=== PATIENT | male | born 1985 | race Caucasian/White ===

== ENCOUNTER → 2016-09-28 | Day surgery (SDC) | payer OTHER ==
[~2016-09-28] VITALS: Ht 190.5 cm; Wt 108.9 kg
[~2016-09-28] MED LIST: AMOXICILLIN500 MG PO; ANAPROX DS550 MG PO; ATARAX,VISTARIL50 MG PO; BACTRIM DS 8001 TA1 PO; BIAXIN500 MG PO; CARBIDOPA/LEVOD1 TA1 PO; CEPHALEXIN500 M1 PO; CLARITIN10 MG PO; COLACE100 MG PO; COMPAZINE10 MG PO; EES400 MG PO; HYDROCODONE BIT1 T11 PO; KEFLEX500 MG PO; MOTRIN800 MG PO; PEN-VEE K500 MG PO; PLACEBO #001 EACH PO; PROVENTIL0.09 MG/AC IH; TRAMADOL HCL50 MG PO; VIBRAMYCIN100 MG PO; VICODIN 5/500 505 MG PO; VICODIN ES 7501 TAB PO; ZANTAC150 MG PO; ZOFRAN 4 MG ED2 TAB PO; ZOFRAN ODT4 MG SL
--- NOTE | ~2016-09-28 | PROC NOTE ---
[place], [place] PROCEDURE NOTE NAME: LOLLY GARZA UNIT #: [id number] ROOM: DOCTOR: HOMERO WALDRON MD BIRTHDATE: [birth year] DOS: 09/28/2016 PREOPERATIVE DIAGNOSIS: Epigastric pain. POSTOPERATIVE DIAGNOSIS: Epigastric pain. PROCEDURE: Esophagogastroduodenoscopy with biopsy x2. ENDOSCOPIST: Dr. Homero Waldron. BLADDER TIER: MS3. ANESTHESIA: MAC. INDICATIONS: This is a 31-year-old gentleman with a history of persistent epigastric pain despite being on Protonix b.i.d. who is here for the above-mentioned procedure. The procedure and its complications were explained to the patient in detail. Complications that were discussed included but were not limited to bleeding, missed lesions and gastric perforation. He agreed to proceed. DESCRIPTION OF PROCEDURE: After identifying the patient, the patient was brought to the endoscopy suite and laid in the left lateral position. After time-out procedure was called, IV sedation was administered and a bite block was placed. An adult gastroscope was introduced into the mouth and advanced sequentially into the pharynx, esophagus, stomach and the first 2 parts of the duodenum. There was found to be some gastritis mainly in the body of the stomach and also some duodenitis, but no active bleeding. The rest of the stomach mucosa looked within normal limits. At this point, 2 biopsies were taken from the region of the stomach body and sent for histopathological diagnosis. Hemostasis was confirmed after the scope was withdrawn, and these findings were confirmed. There was no obvious esophageal lesion that could be identified. The patient tolerated the procedure well and was taken to the recovery room in stable fashion. There were no complications. Dr. Homero Waldron, the attending endoscopist, was present throughout the operating case. Homero Waldron MD CM:PROCNOTE:PROCEDURE NOTE [id number] HOMERO WALDRON MD
== END | disposition home or self-care (01) ==
LOC: SDC 09-24 11:00
DX: K29.50 Unspecified chronic gastritis without bleeding (principal); K29.80 Duodenitis without bleeding; K21.9 Gastro-esophageal reflux disease without esophagitis; Z83.3 Family history of diabetes mellitus; Z80.9 Family history of malignant neoplasm, unspecified; Z82.49 Family history of ischemic heart disease and other diseases of the circulatory system; Z87.891 Personal history of nicotine dependence

== ENCOUNTER 2016-11-07 23:35 | Emergency (ER) | payer OTHER ==
[~2016-11-07] VITALS: Ht 187.9 cm; Wt 99.8 kg
[2016-11-08 00:08] LABS: BASO % 0.4 % (0.0-1.0); EOS % 0.3 % (1.0-4.0); HEMATOCRIT 41.9 % (42.0-52.0); HEMOGLOBIN 13.4 g/dl (14.0-18.0); IG # 0.2 10*3/uL (0.0-0.1); LYMPH # 4.6 10*3/uL (1.3-4.4); LYMPH % 42.1 % (27.0-41.0); MEAN CELL VOLUME 92.3 fl (80.0-94.0); MEAN CORPUSCULAR HGB 29.5 pg (27.0-31.0); MEAN PLATELET VOLUME 9.8 fl (9.6-12.3); MONO # 0.9 10*3/uL (0.1-1.0); MONO % 8.4 % (3.0-9.0); NEUT # 5.1 10*3/uL (2.3-7.9); NEUT % 47.4 % (47.0-73.0); PLATELET COUNT AUTOMATED 272 10*3/uL (130-400); RED BLOOD COUNT 4.54 10*6/uL (4.50-5.90); RED CELL DISTRI WIDTH 12.7 % (0-14.5); WHITE BLOOD COUNT 10.8 10*3/uL (4.8-10.8)
[2016-11-08 00:09] LABS: BUN 12 mg/dl (7-24); CARBON DIOXIDE 28 mmol/L (21-32); CHLORIDE 105 mmol/L (98-107); EST GLOM FILT AFRICAN AMERICAN > 60 ml/min; GLUCOSE 199 mg/dL (65-99); POTASSIUM 3.4 mmol/L (3.5-5.1); SODIUM 143 mmol/L (136-145)
[2016-11-08 00:12] LABS: TROPONIN I < 0.015 ng/ml (<0.045)
[2016-11-08 01:07] VITALS: BP 128/92
== END 2016-11-08 01:39 | disposition home or self-care (01) ==
LOC: ED 23:35
PROVIDERS: Student in an Organized Health Care Education/Training Program
DX: T50.901A Poisoning by unspecified drugs, medicaments and biological substances, accidental (unintentional), initial encounter (principal); F11.10 Opioid abuse, uncomplicated; F14.10 Cocaine abuse, uncomplicated; Y92.9 Unspecified place or not applicable

== ENCOUNTER 2016-12-22 13:33 | Emergency (ER) | payer OTHER ==
[~2016-12-22] VITALS: Wt 95.3 kg
[2016-12-22 13:42] VITALS: BP 170/100
[2016-12-22] MEDS ORDERED: NALTREXONE50 MG PO (13:42)
[2016-12-22] MEDS ORDERED: REQUIP0.5 MG PO (13:58)
== END 2016-12-22 14:20 | disposition home or self-care (01) ==
LOC: ED 13:33
DX: R42 Dizziness and giddiness (principal); T50.7X1A Poisoning by analeptics and opioid receptor antagonists, accidental (unintentional), initial encounter; F11.23 Opioid dependence with withdrawal; F12.10 Cannabis abuse, uncomplicated; Z90.49 Acquired absence of other specified parts of digestive tract; Z79.899 Other long term (current) drug therapy; Y92.9 Unspecified place or not applicable

== ENCOUNTER 2018-01-19 23:28 | Emergency (ER) | payer OTHER ==
[~2018-01-19] VITALS: Ht 187.9 cm; Wt 90.7 kg
[~2018-01-19 23:28] MED LIST changes: +NALTREXONE50 MG PO; +REQUIP0.5 MG PO
[2018-01-19 23:31] VITALS: BP 133/81
== END 2018-01-20 00:30 | disposition home or self-care (01) ==
LOC: ED 23:28
DX: H61.21 Impacted cerumen, right ear (principal); F17.200 Nicotine dependence, unspecified, uncomplicated; Z79.899 Other long term (current) drug therapy

== ENCOUNTER 2018-06-09 10:06 | Inpatient (IN) | payer OTHER ==
[~2018-06-09] VITALS: Ht 188 cm; Wt 117.2 kg
--- NOTE | ~2018-06-09 | EKG ---
[place], [place] ELECTROCARDIOGRAM REPORT NAME: LOLLY GARZA UNIT #: [id number] ROOM: 519 DOCTOR: CAROL DRAFT REPORT BIRTHDATE: [birth year] [facility] Test Date: 2018-06-09 Test Time: 13:01:11 Pat Name: LOLLY GARZA Department: Room: [facility] 1 Gender: M [employer]: : 1985 Requested By: CATHIE WASHINGTON Order Number: [id number] Reading MD: Maggi Doty MD Measurements Intervals [place] Rate: 58 P: 20 [place]: 141 QRS: 79 QRSD: 88 T: 68 QT: 407 QTc: 400 Interpretive Statements Sinus rhythm Electronically Signed On 06-10-2018 11:10:47 PST by Maggi Doty MD CM:EKGRPT:ELECTROCARDIOGRAM REPORT 1301 [id number] SHWETA SANTANA DRAFT REPORT CATHIE WASHINGTON DPM
[2018-06-09 10:11] VITALS: BP 123/88
[2018-06-09 10:35] LABS: BASO # 0.1 10*3/uL (0.0-0.1); BASO % 0.5 % (0.0-1.0); EOS # 0.2 10*3/uL (0.0-0.4); HEMATOCRIT 43.5 % (42.0-52.0); LYMPH # 2.7 10*3/uL (1.3-4.4); LYMPH % 27.5 % (27.0-41.0); MEAN CELL VOLUME 94.4 fl (80.0-94.0); MEAN CORPUSCULAR HGB 30.4 pg (27.0-31.0); MEAN CORPUSCULAR HGB CONC 32.2 g/dl (33.0-37.0); MEAN PLATELET VOLUME 9.7 fl (9.6-12.3); MONO # 0.9 10*3/uL (0.1-1.0); MONO % 8.9 % (3.0-9.0); NEUT % 60.7 % (47.0-73.0); PLATELET COUNT AUTOMATED 258 10*3/uL (130-400); RED BLOOD COUNT 4.61 10*6/uL (4.50-5.90); RED CELL DISTRI WIDTH 12.4 % (0-14.5); WHITE BLOOD COUNT 9.9 10*3/uL (4.8-10.8)
[2018-06-09 10:41] LABS: URINE AMPHETAMINES < 1000 (1000ng/ml); URINE BARBITURATES < 200 (200ng/ml); URINE BENZODIAZEPINES < 200 (200ng/ml); URINE CANNABINOIDS (THC) > 50 (50ng/ml); URINE COCAINE > 300 (300ng/ml); URINE METHADONE < 300 (300ng/ml); URINE OPIATES > 300 (300ng/ml)
[2018-06-09 10:44] LABS: URINE PHENCYCLIDINE < 25 (25ng/ml)
[2018-06-09 10:50] LABS: ALBUMIN 3.8 gm/dl (3.1-4.5); ALKALINE PHOSPHATASE 88 U/L (45-117); BUN 14 mg/dl (7-24); CHLORIDE 105 mmol/L (98-107); CREATININE 1.19 mg/dL (0.70-1.30); SGOT/AST 22 IU/L (3-35); SGPT/ALT 49 U/L (12-78); SODIUM 140 mmol/L (136-145); TOTAL PROTEIN 7.6 gm/dL (6.4-8.2)
[2018-06-09 10:58] LABS: ETHYL ALCOHOL < 3.0 mg/dl (<3)
[2018-06-09 11:58] VITALS: BP 132/81
[2018-06-09 13:11] LABS: INTERNATIONAL NORM RATIO 0.9 (2.0-3.5)
[2018-06-09 16:00] VITALS: BP 108/55
[2018-06-09 20:00] VITALS: BP 143/86
[2018-06-09 20:42] LABS: BILIRUBIN NEGATIVE (NEGATIVE); BLOOD NEGATIVE (NEGATIVE); CLARITY CLEAR (CLEAR); COLOR YELLOW (YELLOW); GLUCOSE NEGATIVE (NEGATIVE); KETONE NEGATIVE (NEGATIVE); LEUKO ESTERASE NEGATIVE (NEGATIVE); NITRITE NEGATIVE (NEGATIVE); SPECIFIC GRAVITY >= 1.030 (1.005-1.030)
[2018-06-09 20:51] LABS: BACTERIA 1+; MUCOUS 2+
[2018-06-09 20:52] LABS: WBC 0-2 wbc/hpf (0-5)
[2018-06-10] VITALS: BP 137/75
[2018-06-10 08:00] VITALS: BP 128/72
== END 2018-06-10 10:00 | disposition left against medical advice (07) | DRG 894 ==
LOC: ED 10:06 → EDHOLD 11:25 → 5E 11:25
PROVIDERS: Emergency Medicine; Podiatrist Primary Podiatric Medicine
DX: F11.23 Opioid dependence with withdrawal (principal); F14.90 Cocaine use, unspecified, uncomplicated; F12.90 Cannabis use, unspecified, uncomplicated; Z72.0 Tobacco use; E66.9 Obesity, unspecified; R73.9 Hyperglycemia, unspecified; Z53.21 Procedure and treatment not carried out due to patient leaving prior to being seen by health care provider; Z71.6 Tobacco abuse counseling; Z68.33 Body mass index [BMI] 33.0-33.9, adult; Z90.49 Acquired absence of other specified parts of digestive tract; Z83.3 Family history of diabetes mellitus; Z82.49 Family history of ischemic heart disease and other diseases of the circulatory system; Z80.9 Family history of malignant neoplasm, unspecified

== ENCOUNTER 2018-08-25 20:31 | Emergency (ER) | payer OTHER ==
[~2018-08-25] VITALS: Ht 190.5 cm; Wt 113.4 kg
[2018-08-25 20:33] VITALS: BP 147/94
== END 2018-08-25 23:00 | disposition home or self-care (01) ==
LOC: ED 20:31
DX: M79.652 Pain in left thigh (principal); E66.9 Obesity, unspecified; Z68.34 Body mass index [BMI] 34.0-34.9, adult; V47.6XXA Car passenger injured in collision with fixed or stationary object in traffic accident, initial encounter; Y93.89 Activity, other specified; Y92.89 Other specified places as the place of occurrence of the external cause; Y99.8 Other external cause status

== ENCOUNTER 2018-09-06 23:05 | Inpatient (IN) | payer OTHER ==
[~2018-09-06] VITALS: Ht 190.5 cm; Wt 114.3 kg
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
--- NOTE | ~2018-09-06 | EKG ---
[place], [place] ELECTROCARDIOGRAM REPORT NAME: LOLLY GARZA UNIT #: [id number] ROOM: [place] [address] DOCTOR: CAROL DRAFT REPORT BIRTHDATE: [birth year] [facility] Test Date: 2018-09-06 Test Time: 23:20:45 Pat Name: LOLLY GARZA Department: Room: [place] [address] Gender: M Supervisor Grounds: Angelica Chu : 1985 Requested By: JUANA POLLARD Order Number: [id number] Reading MD: Melvin Jesus MD Measurements Intervals [place] Rate: 95 P: 24 [place]: 142 QRS: 85 QRSD: 95 T: 36 QT: 344 QTc: 433 Interpretive Statements Sinus rhythm RSR' in V1 or V2, right VCD or RVH Baseline wander in lead(s) II,III,aVF Compared to ECG 06/09/2018 13:01:11 RSR' in V1 or V2 now present Electronically Signed On 09-07-2018 7:26:55 PST by Melvin Jesus MD CM:EKGRPT:ELECTROCARDIOGRAM REPORT 2320 0726 JUANA MEDINA DRAFT REPORT JUANA POLLARD MD
[2018-09-06 23:06] VITALS: BP 122/91
[2018-09-06 23:25] LABS: HEMATOCRIT 39.5 % (42.0-52.0); HEMOGLOBIN 12.7 g/dl (14.0-18.0); MEAN CELL VOLUME 93.2 fl (80.0-94.0); MEAN CORPUSCULAR HGB CONC 32.2 g/dl (33.0-37.0); MEAN PLATELET VOLUME 9.7 fl (9.6-12.3); PLATELET COUNT AUTOMATED 307 10*3/uL (130-400); RED BLOOD COUNT 4.24 10*6/uL (4.50-5.90); RED CELL DISTRI WIDTH 13.2 % (0-14.5); WHITE BLOOD COUNT 24.2 10*3/uL (4.8-10.8)
--- NOTE | 2018-09-06 23:40 | NUR ---
NCO2 51 ON 2 L PER NC. HENRRY RT AT BEDSIDE AND DR DAVIS.
--- NOTE | 2018-09-06 23:45 | NUR ---
PT HAD LARGE EMESIS AT THIS TIME. NCO2 52 ON 2L PER NC. DR SHIRLEY.
[2018-09-06 23:49] LABS: BASOPHILS 1 % (0-1); TOTAL CELLS COUNTED 100 #CELLS
[2018-09-06 23:50] LABS: PLATELET SUFFICIENCY NORMAL (NORMAL)
[2018-09-06 23:53] LABS: ACETAMINOPHEN (TYLENOL) < 5.0 ug/ml (10-30); ALBUMIN 3.8 gm/dl (3.1-4.5); ALKALINE PHOSPHATASE 77 U/L (45-117); BUN 13 mg/dl (7-24); CHLORIDE 105 mmol/L (98-107); CREATININE 1.48 mg/dL (0.70-1.30); ETHYL ALCOHOL < 3.0 mg/dl (<3); POTASSIUM 3.8 mmol/L (3.5-5.1); SGOT/AST 340 IU/L (3-35); SGPT/ALT 195 U/L (12-78); SODIUM 142 mmol/L (136-145); TOTAL PROTEIN 7.6 gm/dL (6.4-8.2)
[2018-09-07] VITALS (7 sets, daily range): BP systolic 106–137; BP diastolic 58–90
--- NOTE | 2018-09-07 00:03 | NUR ---
PT ALERT, BUT SLEEPY AND CONFUSED. ORIENTED TO SELF AND PLACE. ANSWERED [place] WHEN ASKED WHO THE PRESIDENT IS. OFTEN ANSWERS "YES" TO ALL QUESTIONS.
--- NOTE | 2018-09-07 01:01 | NUR ---
PT ATTEMPTED TO USE URINAL. VOIDED ON FLOOR.
--- NOTE | 2018-09-07 01:04 | NUR ---
PT A&OX3 AT THIS TIME. ABLE TO ANSWER ALL QUESTIONS APPROPRIATELY. SLOW TO ANSWER AT TIMES. STILL DROWSY, BUT ABLE TO BE EASILY AWAKENED. DENIES C/O NAUSEA. 89P CM, 17R. 139/88. SPO2 98% ON 2L PER NC. NCO2 52.
--- NOTE | 2018-09-07 01:35 | NUR ---
A 33 year old male admitted to [facility], under the services of CESAR Gutierrez DO with a diagnosis of drug overdose. Chief complaint is found unresponsive at home by . Patient arrived via stretcher from ER. Monitor applied. Initial assessment completed. Vital signs taken and recorded. CESAR GUTIERREZ DO notified of admission to the unit. Orders received. See assessment for past medical history, medications and allergies. Patient and/or family oriented to unit. [facility] visitation policy reviewed. Clothing/patient valuable form completed. SCAR KRAUSE
--- NOTE | 2018-09-07 04:10 | NUR ---
AWAKE. RESTING IN BED WATCHING TV. REMAINS SL DROWSY. ALERT. PULSE OX 96% ON 3L. IV FLUIDS CONT.
[2018-09-07 04:38] LABS: BASO % 0.2 % (0.0-1.0); HEMATOCRIT 39.1 % (42.0-52.0); HEMOGLOBIN 12.5 g/dl (14.0-18.0); LYMPH # 1.5 10*3/uL (1.3-4.4); LYMPH % 8.5 % (27.0-41.0); MEAN CELL VOLUME 92.9 fl (80.0-94.0); MEAN CORPUSCULAR HGB 29.7 pg (27.0-31.0); MEAN PLATELET VOLUME 9.9 fl (9.6-12.3); MONO % 5.3 % (3.0-9.0); NEUT # 15.2 10*3/uL (2.3-7.9); NEUT % 85.3 % (47.0-73.0); PLATELET COUNT AUTOMATED 289 10*3/uL (130-400); RED BLOOD COUNT 4.21 10*6/uL (4.50-5.90); RED CELL DISTRI WIDTH 13.4 % (0-14.5); WHITE BLOOD COUNT 17.8 10*3/uL (4.8-10.8)
[2018-09-07 05:08] LABS: ALBUMIN 3.7 gm/dl (3.1-4.5); ALKALINE PHOSPHATASE 73 U/L (45-117); BUN 11 mg/dl (7-24); CHLORIDE 109 mmol/L (98-107); CREATININE 1.08 mg/dL (0.70-1.30); PHOSPHOROUS 3.1 mg/dL (2.5-4.9); POTASSIUM 4.4 mmol/L (3.5-5.1); SGOT/AST 276 IU/L (3-35); SGPT/ALT 183 U/L (12-78); SODIUM 143 mmol/L (136-145); TOTAL PROTEIN 7.6 gm/dL (6.4-8.2)
--- NOTE | 2018-09-07 06:15 | NUR ---
REMAINS SLEEPING. NO DISTRESS NOTED. IV FLUIDS CONT. VOIDED IN ER. CONDITION GUARDED.
--- NOTE | 2018-09-07 06:57 | NUR ---
Shift chart check completed.24 HR chart check completed.
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
[2018-09-07] MEDS ORDERED: VIVITROL380 MG IM (08:04)
--- NOTE | 2018-09-07 08:34 | NUR ---
DR PEÑALOZA HAS VISITED. [facility] NOTIFIED OF CONSULTATION.
--- NOTE | 2018-09-07 08:54 | NUR ---
MOTRIN BY MOUTH FOR HEADACHE. ATE ABOUT 50% OF BREAKFAST.
--- NOTE | 2018-09-07 09:23 | NUR ---
PT ON PORTABLE PHONE FREQUENTLY WITH HIS AND OTHERS.
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
--- NOTE | 2018-09-07 11:17 | NUR ---
DR LOPEZ'S ANSWERING SERVICE NOTIFIED OF CONSULTATION. GASPER ROGERS DID NOT SEE THE PATIENT THE ELECTRONIC ORDER WAS SPECIFICALLY FOR DR LOPEZ.
[2018-09-07 11:21] LABS: BILIRUBIN NEGATIVE (NEGATIVE); BLOOD NEGATIVE (NEGATIVE); CLARITY CLEAR (CLEAR); COLOR YELLOW (YELLOW); GLUCOSE NEGATIVE (NEGATIVE); KETONE TRACE (NEGATIVE); LEUKO ESTERASE NEGATIVE (NEGATIVE); NITRITE NEGATIVE (NEGATIVE); SPECIFIC GRAVITY >= 1.030 (1.005-1.030); UROBILINOGEN 0.2 E.U./dl (0.2-1.0)
[2018-09-07 11:29] LABS: MUCOUS TRACE
[2018-09-07 11:34] LABS: URINE AMPHETAMINES < 1000 (1000ng/ml); URINE BARBITURATES < 200 (200ng/ml); URINE BENZODIAZEPINES > 200 (200ng/ml); URINE CANNABINOIDS (THC) < 50 (50ng/ml); URINE COCAINE < 300 (300ng/ml); URINE METHADONE < 300 (300ng/ml); URINE OPIATES > 300 (300ng/ml)
[2018-09-07 11:35] LABS: URINE PHENCYCLIDINE < 25 (25ng/ml)
--- NOTE | 2018-09-07 13:05 | NUR ---
NO OTHER VOICED COMPLAINTS OF HEADACHE.
--- NOTE | 2018-09-07 14:37 | NUR ---
DOZING AT INTERVALS.
--- NOTE | 2018-09-07 19:45 | NUR ---
MEDICATED WITH MOTRIN PER PRN ORDER FOR C/O HEADACHE.
[2018-09-08] VITALS: BP 123/72
[2018-09-08 04:00] VITALS: BP 107/68
[2018-09-08 05:03] LABS: BASO % 0.3 % (0.0-1.0); EOS # 0.1 10*3/uL (0.0-0.4); EOS % 0.9 % (1.0-4.0); LYMPH # 3.4 10*3/uL (1.3-4.4); LYMPH % 39.7 % (27.0-41.0); MEAN CORPUSCULAR HGB 29.9 pg (27.0-31.0); MEAN CORPUSCULAR HGB CONC 32.4 g/dl (33.0-37.0); MEAN PLATELET VOLUME 9.8 fl (9.6-12.3); MONO # 0.7 10*3/uL (0.1-1.0); MONO % 8.6 % (3.0-9.0); NEUT # 4.3 10*3/uL (2.3-7.9); NEUT % 50.2 % (47.0-73.0); PLATELET COUNT AUTOMATED 235 10*3/uL (130-400); RED BLOOD COUNT 4.02 10*6/uL (4.50-5.90); RED CELL DISTRI WIDTH 13.2 % (0-14.5); WHITE BLOOD COUNT 8.6 10*3/uL (4.8-10.8)
[2018-09-08 05:35] LABS: ALBUMIN 3.2 gm/dl (3.1-4.5); BUN 9 mg/dl (7-24); CHLORIDE 107 mmol/L (98-107); CREATININE 0.82 mg/dL (0.70-1.30); SGOT/AST 112 IU/L (3-35); SGPT/ALT 117 U/L (12-78); SODIUM 143 mmol/L (136-145)
[2018-09-08 05:37] LABS: ALKALINE PHOSPHATASE 59 U/L (45-117); POTASSIUM 3.4 mmol/L (3.5-5.1); TOTAL PROTEIN 6.5 gm/dL (6.4-8.2)
[2018-09-08 07:52] VITALS: BP 120/80
--- NOTE | 2018-09-08 08:03 | NUR ---
Awake and alert. NPO for US liver this AM. No c/o. States " The doctors said i can go home today, When will they be coming in" .
--- NOTE | 2018-09-08 10:11 | NUR ---
US liver complete. dr. Herring in to evaulate. Monitor dc'd. Discharge pending Dr. Hairston evaulation.. Dr. Hairston in , Order for discharge recieved . Instruction given. HL dc'd. Voiced understanding. Discharged to home.
[2018-09-09 07:11] LABS: HEPATITIS B SURFACE AG Negative (Negative); HEPATITIS C VIRUS ANTIBODY <0.1 s/co (0.0-0.9)
== END 2018-09-08 10:11 | disposition home or self-care (01) | DRG 917 ==
LOC: ED 23:05 → EDHOLD 09-07 00:26 → ICCU 09-07 00:33
PROVIDERS: Emergency Medicine Emergency Medical Services; Internal Medicine; ADMIT Internal Medicine
DX: T40.2X1A Poisoning by other opioids, accidental (unintentional), initial encounter (principal); G93.41 Metabolic encephalopathy; N17.0 Acute kidney failure with tubular necrosis; R65.11 Systemic inflammatory response syndrome (SIRS) of non-infectious origin with acute organ dysfunction; E66.9 Obesity, unspecified; R74.0 Nonspecific elevation of levels of transaminase and lactic acid dehydrogenase [LDH]; F11.10 Opioid abuse, uncomplicated; E87.8 Other disorders of electrolyte and fluid balance, not elsewhere classified; K76.0 Fatty (change of) liver, not elsewhere classified; E55.9 Vitamin D deficiency, unspecified; R73.9 Hyperglycemia, unspecified; Z87.891 Personal history of nicotine dependence; Y92.89 Other specified places as the place of occurrence of the external cause; Z90.49 Acquired absence of other specified parts of digestive tract; Z83.3 Family history of diabetes mellitus; Z68.31 Body mass index [BMI] 31.0-31.9, adult

== ENCOUNTER 2019-01-29 13:14 | Emergency (ER) | payer SELFPAY ==
[~2019-01-29] VITALS: Ht 190.5 cm; Wt 108.9 kg
[~2019-01-29 13:14] MED LIST changes: +VIVITROL380 MG IM
[2019-01-29 13:16] VITALS: BP 127/82
[2019-01-29] MEDS ORDERED: CLARITIN-D 121 EACH PO (14:29)
[2019-01-29] MEDS ORDERED: Tobrex Ophth S2.5 ML OPH (14:29)
== END 2019-01-29 14:40 | disposition home or self-care (01) ==
LOC: ED 13:14
DX: H57.11 Ocular pain, right eye (principal); R51 Headache; H53.8 Other visual disturbances; R42 Dizziness and giddiness; F17.200 Nicotine dependence, unspecified, uncomplicated

== ENCOUNTER 2019-10-30 01:30 | Emergency (ER) | payer OTHER ==
[~2019-10-30] VITALS: Ht 190.5 cm; Wt 124.9 kg
[2019-10-30 01:30] VITALS: BP 0/0
[~2019-10-30 01:30] MED LIST changes: +CLARITIN-D 121 EACH PO; +Tobrex Ophth S2.5 ML OPH
== END 2019-10-30 04:30 | disposition expired ==
LOC: ED 01:30
DX: I46.9 Cardiac arrest, cause unspecified (principal); R11.10 Vomiting, unspecified; E66.9 Obesity, unspecified; K21.9 Gastro-esophageal reflux disease without esophagitis; Z79.2 Long term (current) use of antibiotics; Z79.899 Other long term (current) drug therapy; Z87.891 Personal history of nicotine dependence; Z68.30 Body mass index [BMI] 30.0-30.9, adult; Z90.49 Acquired absence of other specified parts of digestive tract